=== PATIENT | female | born 1995 | race Asian ===

== ENCOUNTER 2016-11-24 14:46 | Emergency (ER) | payer SELFPAY ==
[~2016-11-24] VITALS: Ht 162.6 cm; Wt 52.2 kg
[2016-11-24 15:00] VITALS: BP 107/82
--- NOTE | 2016-11-24 15:28 | Emergency Room Report ---
History of Present Illness General Chief Complaint: General Complaint Source: Patient Present Illness HPI 21-year-old female presents to emergency Department complaining of multiple abrasions on the right side of the upper extremity and right lower extremity. Patient states she was running and fell on the ground. Patient denies bony tenderness. Patient does not know when her last tetanus vaccination was. Patient states pain is burning in sensation and 5 / 10 in severity and exacerbated with touch. Patient states she has applied some ointment but is here to be evaluated. Patient denies hitting head or losing consciousness. She does not taking blood thinning medications. Denies numbness tingling or loss of sensation or gross motor movements of the extremities, incontinence of bowel or bladder. Denies CP, Palpitations, LOC, AMS, dizziness, Changes in Vision, Sensation, paresthesias, or a sudden severe headache. Allergies: Coded Allergies: No Known Allergies (Unverified , 11/24/16) Patient History Past Medical History: see triage record Past Surgical History: none Pertinent Family History: none Now: No Reviewed Nursing Documentation: PMH: Agreed, PSxH: Agreed Nursing Documentation-PMH Past Medical History: No Stated History Review of Systems All Other Systems: negative except mentioned in HPI Physical Exam Vital Signs Date Time Temp Pulse Resp B/P Pulse Ox O2 Delivery O2 Flow Rate FiO2 11/24/16 14:59 98.6 78 20 107/82 100 Room Air Sp02 EP Interpretation: reviewed, normal General Appearance: no apparent distress, alert, GCS 15, non-toxic Head: normocephalic, atraumatic Eyes: bilateral eye PERRL, bilateral eye normal inspection ENT: hearing grossly normal, normal pharynx, no angioedema, normal voice Neck: full range of motion, supple/symm/no masses Respiratory: chest non-tender, lungs clear, normal breath sounds, speaking full sentences Cardiovascular #1: regular rate, rhythm, no edema Musculoskeletal: back normal, gait/station normal, normal range of motion, non- tender, no calf tenderness Neurologic: alert, oriented x3, responsive, motor strength/tone normal, sensory intact, speech normal Psychiatric: judgement/insight normal, memory normal, mood/affect normal, no suicidal/homicidal ideation Skin: normal color, no rash, warm/dry, well hydrated, abrasions - multiple abrasions to the right ant. shoulder, the right lateral forearm, the right ankle , abrasions are approximately 8cm in length each. no bruises noted, no swellilng or d/c. Lymphatic: no adenopathy Medical Decision Making PA Attestation Dr. Montilla is my supervising Physician whom patient management has been discussed with. Diagnostic Impression: Primary Impression: Multiple abrasions ER Course 21-year-old female presents to emergency Department complaining of multiple abrasions on the right side of the upper extremity and right lower extremity. Patient states she was running and fell on the ground. Patient denies bony tenderness. Patient does not know when her last tetanus vaccination was Ddx considered but are not limited to Fracture, dislocation, contusion, Sprain/ Strain/Spasm, Abrasions, lacerations Vital signs: are WNL, pt. is afebrile H&PE are most consistent with multiple abrasions of the right UE and one on the dorsum of the right foot. ORDERS: - none required at this time, pt. has no bony ttp, and FROM of joints. no bruises noted. ED INTERVENTIONS: -Wounds are cleaned and irrigated. - Bacitracin is applied -wound are dressed by ED RN. -Tdap is administered. -Tylenol PO DISCHARGE: At this time pt. is stable for d/c to home. Will provide printed patient care instructions, and any necessary prescriptions. Care plan and follow up instructions have been discussed with the patient prior to discharge. Last Vital Signs Date Time Temp Pulse Resp B/P Pulse Ox O2 Delivery O2 Flow Rate FiO2 11/24/16 14:59 98.6 78 20 107/82 100 Room Air Disposition: HOME, SELF-CARE Condition: Stable Scripts Bacitracin Zinc/Polymyx B Sulf (HM DOUBLE ANTIBIOTIC OINTMENT) 28.4 Gm Oint...g. 1 APPLIC TP BID for 7 Days, #28.4 GM Prov: Angelic Shaw 11/24/16 Patient Instructions: Abrasion Additional Instructions: Take medications as directed. Follow up with PCP in 3-5 days Return sooner to ED if new symptoms occur, or current symptoms become worse. - Please note that this Emergency Department Report was dictated using [employer] strateg[employer] technology software, occasionally this can lead to erroneous entry secondary to interpretation by the dictation equipment. Angelic Shaw Nov 24, 2016 15:27
[2016-11-24] MEDS ORDERED: TdaP Vaccine 0.5ml Syr IM ONE (15:30)
[2016-11-24] MEDS ORDERED: Bacitracin Oint UD TOPIC ONE (15:30)
[2016-11-24] MEDS ORDERED: HM DOUBLE ANT28.4 G1 TP (15:50)
[2016-11-24 16:24] VITALS: BP 105/79
== END 2016-11-24 16:27 | disposition home or self-care (01) ==
LOC: EMR 16:08
DX: S40.211A Abrasion of right shoulder, initial encounter (principal); S50.811A Abrasion of right forearm, initial encounter; S90.511A Abrasion, right ankle, initial encounter; W19.XXXA Unspecified fall, initial encounter; Y93.02 Activity, running; Y92.9 Unspecified place or not applicable; Z23 Encounter for immunization
CPT/HCPCS: 90471; 90715; 99283